=== PATIENT | female | born 1975 | race Caucasian/White ===

== ENCOUNTER 2019-08-03 09:26 | Outpatient (CLI) | payer MEDICARE, MEDICAID ==
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
== END 2019-08-03 09:27 | disposition home or self-care (01) ==
LOC: NM 09:26
PROVIDERS: ATTEND Orthopaedic Surgery
DX: T84.031A Mechanical loosening of internal left hip prosthetic joint, initial encounter (principal); T84.051A Periprosthetic osteolysis of internal prosthetic left hip joint, initial encounter; M70.62 Trochanteric bursitis, left hip
CPT/HCPCS: 78315; A9503

== ENCOUNTER 2019-11-02 16:46 | Inpatient (IN) | payer MEDICARE, OTHER ==
[~2019-11-02 16:46] MED LIST: Iopamidol-370 76% 500 ML 1 ML ONE
[2019-11-02] MEDS ORDERED: Acetaminophen 325 MG TAB PO PRN (20:44)
[2019-11-02] MEDS ORDERED: Ondansetron PF 4 MG/2 ML Vial IVP PRN (20:44)
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
--- NOTE | 2019-11-02 22:16 | CT ---
Exam: CT angiogram of the head INDICATION: Left facial numbness. Slurred speech. COMPARISON: None TECHNIQUE: CT angiogram of the head and neck are performed in the axial plane. Three-dimensional refo rmatted images are submitted for interpretation. FINDINGS: CTA OF THE HEAD WITH AND WITHOUT CONTRAST: NONCONTRAST HEAD CT: No parenchymal hemorrhage No extra-axial hematoma No midline shift Basilar cisterns are patent. White matter hypodensities adjacent to the frontal horn of both lateral ventricles with associated ex vacuo dilatation. There is asymmetric volume loss involving both frontal lobes. Calvarium is intact. Adequate aeration of the sinuses and mastoid air cells. POSTCONTRAST CT OF BRAIN: Pathologic enhancement: No pathologic enhancement the brain. CTA OF THE BRAIN: Intracranial internal carotid arteries:Symmetric enhancement and luminal diameter of the distal cervi rosemary and intracranial internal carotid arteries Anterior circulation: Symmetric enhancement and luminal diameter the A1 and M1 segments. Symmetric en hancement and luminal diameter the proximal A2 segments and proximal MCA branches. Intracranial vertebral arteries: Appropriate enhancement and luminal diameter. Bilateral PICA artery origins are unremarkable. Posterior circulation: Appropriate enhancement and luminal diameter of the basilar artery. Appropriat e enhancement and luminal diameter of the left and right P1 segments. IMPRESSION: 1. No hemodynamically significant stenosis, occlusion or aneurysmal formation. Transcribed Date/Time: 11/02/2019 10:46 PM
[2019-11-03 05:41] LABS: %Eosinophils 1.7 % (0.0-10.0); %Lymphocytes 32.3 % (21.0-51.0); %Monocytes 8.6 % (0.0-10.0); %Neutrophils 56.6 % (42.0-75.0); Hemoglobin 11.7 g/dL (12.0-16.0); Mean Corpuscular HGB CONC 32.4 g/dL (32.0-36.0); Mean Corpuscular Hemoglobin 28.3 pg (27.0-31.0); Mean Corpuscular Volume 87.2 fL (78.0-98.0); Mean Platelet Volume 8.2 fL (7.4-10.4); Platelet Count 247 thou/uL (130-400); RBC Distribution Width 14.8 % (11.5-14.5); Red Blood Cell (RBC) Count 4.13 mill/uL (4.20-5.40); White Blood Cell (WBC) Count 6.2 thou/uL (4.8-10.8)
[2019-11-03 05:42] LABS: #Basophils 0.1 thou/uL (0.0-0.2); #Eosinphils 0.1 thou/uL (0.0-0.7); #Monocytes 0.5 thou/uL (0.11-0.59); #Neutrophils 3.5 thou/uL (1.40-6.50); %Basophils 0.8 % (0.0-1.0)
[2019-11-03 05:57] LABS: Anion Gap 10 mmol/L (10-20); BUN (Urea Nitrogen) 12 mg/dL (7.0-18.7); Calc. Creatinine Clearance 131 mL/min (70-130); Calcium 8.4 mg/dL (7.8-10.44); Carbon Dioxide 25 mmol/L (22-29); Cardiac Risk 3.2 (Less than 4.5); Chloride 107 mmol/L (98-107); Cholesterol 167 mg/dl (< 200 Desired); Estimated GFR-MDRD 80; Glucose 86 mg/dL (70-105); HDL Cholesterol 52 mg/dL (>60 Neg Risk); LDL Cholesterol, Calculated 96 mg/dL; Sodium 138 mmol/L (136-145); Triglycerides 94 mg/dL (Less than 150)
[2019-11-03] MEDS: Enoxaparin Sodium 40 MG/0.4 ML SYRINGE SC SCH (08:35)
[2019-11-03] MEDS: Aspirin 81 mg Enteric Coated Tablet PO SCH (08:36)
[2019-11-03] MEDS ORDERED: FLU VACC QS2019-20(6MOS UP)/PF 60 MCG/0.5 ML SYRINGE IM ONE (09:00)
--- NOTE | 2019-11-03 10:51 | MRI ---
MRI BRAIN WITHOUT CONTRAST: Date: 11/03/2019 HISTORY: Transient ischemic attack. COMPARISON: Brain exam from prior day. FINDINGS: On the diffusion-weighted imaging sequence, there is acute infarction of the posterior right insula, as well as of the right parietal operculum and temporal lobe and posterior right MCA territory. There is moderate atrophy of the frontal lobes. There is evidence of old hemorrhage along the bilater al frontal periventricular white matter. Some gliosis of the bifrontal white matter. Moderate atrophy . Moderate ex vacuo dilatation of the ventricular system and extra-axial CSF spaces. [place] flow-voids appear to be maintained. The dural venous sinus flow-voids are maintained . IMPRESSION: 1. Right posterior mid MCA territory infarction involving the right temporal lobe, as well as the te mporal and frontal operculum and posterior right insula. 2. Evidence of old injury of the bifrontal white matter in the periventricular region with evidence of old hemorrhage and significant gliosis. This may be sequelae of prior trauma. 3. No midline shift. No mass effect. POS: TPC
[2019-11-03] MEDS: traMADol HCl 50 MG TAB PO PRN ×2 (11:35→22:11)
[2019-11-03 17:26] LABS: PTT 34.1 SEC (22.9-36.1); Prothrombin Time 13.5 SEC (12.0-14.7)
[2019-11-03 17:27] LABS: D-Dimer Test 3.36 *mcg/mL (0.27-0.43)
--- NOTE | 2019-11-03 18:02 | PDOC.HOSPP ---
- Subjective Encounter Date: 11/03/19 Encounter Time: 18:00 Subjective: f/u for acute R temporal lobe MCA territorial infarct. Receiving ASA/Lipitor currently. - Objective Vital Signs & Weight: Vital Signs (12 hours) Temp Pulse Pulse Pulse Resp BP BP 11/03/19 16:00 98.1 F 87 14 11/03/19 14:47 90 80 97/72 120/72 11/03/19 11:09 98.0 F 86 12 11/03/19 07:25 98.7 F 79 12 BP Pulse Ox 11/03/19 16:00 121/71 99 11/03/19 14:47 11/03/19 11:09 111/63 96 11/03/19 07:25 103/64 94 L Weight Weight 203 lb I&O: 11/02/19 11/03/19 11/04/19 06:59 06:59 06:59 Intake Total 120 360 Output Total 1 Balance 120 359 Result Diagrams: 11/03/19 04:45 11/03/19 04:45 Radiology Reviewed by me: Yes (MRI brain - R temporal lobe CVA, old infarcts bilat in context of prior TBI) EKG Reviewed by me: Yes (Tele - SR) Hospitalist ROS - Medication Medications: Active Medications Generic Name Dose Route Start Last Admin Trade Name Freq PRN Reason Stop Dose Admin Aspirin 81 mg 11/03/19 09:00 11/03/19 08:36 Ecotrin PO 81 mg DAILY ADITYA Administration Enoxaparin Sodium 40 mg 11/03/19 09:00 11/03/19 08:35 Lovenox SC Not Given 0900 [facility] Tramadol HCl 50 mg 11/02/19 22:41 11/03/19 11:35 Ultram PO 50 mg Q4H PRN Administration Pain - Exam General Appearance: NAD, awake alert Eye: PERRL, anicteric sclera ENT: normocephalic atraumatic, no oropharyngeal lesions Neck: supple, symmetric, no JVD, no thyromegaly, no lymphadenopathy Heart: RRR, no murmur, no gallops, no rubs, normal peripheral pulses Respiratory: CTAB, no wheezes, no rales, no ronchi, normal chest expansion Gastrointestinal: soft, non-tender, non-distended, normal bowel sounds, no palpable masses Extremities: no cyanosis, no clubbing, no edema Skin: normal turgor, no lesions Neurological: cranial nerve grossly intact, no new deficit Musculoskeletal: normal tone, normal strength Psychiatric: normal affect, oriented to person Hosp A/P (1) Acute CVA (cerebrovascular accident) Code(s): I63.9 - CEREBRAL INFARCTION, UNSPECIFIED Status: Acute Plan: R temporal lobe infarct, continue ASA/Lipitor, general stroke protocol, 2D echo pending (2) Seizure Code(s): R56.9 - UNSPECIFIED CONVULSIONS Status: Chronic Plan: Continue Trileptal, outpt Neurology follow up (3) TBI (traumatic brain injury) Code(s): S06.9X9A - UNSP INTRACRANIAL INJURY W LOC OF UNSP DURATION, INIT Status: Chronic Plan: Remote TBI in the early , supportive mgmt - Plan plan discussed w/ family, PT/OT, social work manager, out of bed/ambulate, DVT proph w/SCDs Stable currently Continue ASA/Lipitor 2D echo pending OOB with PT Likely home in 24h
[2019-11-03] MEDS: Atorvastatin Calcium 40 MG TAB PO SCH (22:12)
[2019-11-03] MEDS: OXcarbazepine 300 MG TAB PO SCH (22:12)
[2019-11-04] MEDS: OXcarbazepine 300 MG TAB PO SCH ×2 (08:42→21:30)
[2019-11-04] MEDS: Terbinafine 250 MG TAB PO SCH (08:42)
[2019-11-04] MEDS: Enoxaparin Sodium 40 MG/0.4 ML SYRINGE SC SCH (08:42)
[2019-11-04] MEDS: Aspirin 81 mg Enteric Coated Tablet PO SCH (08:42)
[2019-11-04] MEDS: traMADol HCl 50 MG TAB PO PRN (11:14)
[2019-11-04] MEDS ORDERED: Sodium Chloride 0.9% 1,000 ML IV SCH (11:15)
[2019-11-04 12:58] LABS: HEX PHOS LA Tube 1 60.5 SEC; HEX PHOS LA Tube 2 57.4 SEC; Hexagonal Phospholipid Neut 3.1 SEC (0-8.0); Protein C Activity 85 % (78-152)
[2019-11-04 13:00] LABS: Factor VIII Test 94.8 % ACTIVE (56-157)
--- NOTE | 2019-11-04 18:58 | PDOC.HOSPP ---
- Subjective Encounter Date: 11/04/19 Encounter Time: 10:30 Subjective: Patient seen and examined for acute CVA. No new focal deficits. BP on lower side per RN. No CP/syncope. No new complaints. No overnight events - Objective Vital Signs & Weight: Vital Signs (12 hours) Temp Pulse Resp BP BP BP Pulse Ox 11/04/19 16:00 98.4 F 79 14 117/82 96 11/04/19 11:03 99.5 F 82 14 111/66 99 11/04/19 08:50 109/61 98/65 95/69 11/04/19 07:27 98.1 F 72 20 105/67 98 Weight Weight 203 lb I&O: 11/03/19 11/04/19 11/05/19 06:59 06:59 06:59 Intake Total 120 480 840 Output Total 1 Balance 120 479 840 Result Diagrams: 11/03/19 04:45 11/03/19 04:45 EKG Reviewed by me: Yes (Tele SR) Hospitalist ROS - Review of Systems Respiratory: denies: cough, dry, shortness of breath, hemoptysis, SOB with excertion, pleuritic pain, sputum, wheezing, other Cardiovascular: denies: chest pain, palpitations, orthopnea, paroxysmal noc. dyspnea, edema, light headedness, other - Medication Medications: Active Medications Generic Name Dose Route Start Last Admin Trade Name Freq PRN Reason Stop Dose Admin Aspirin 81 mg 11/03/19 09:00 11/04/19 08:42 Ecotrin PO 81 mg DAILY ADITYA Administration Atorvastatin Calcium 40 mg 11/03/19 21:00 11/03/19 22:12 Lipitor PO 40 mg HS ADITYA Administration Enoxaparin Sodium 40 mg 11/03/19 09:00 11/04/19 08:42 Lovenox SC 40 mg 0900 ADITYA Administration Sodium Chloride 1,000 mls @ 100 mls/hr 11/04/19 11:15 11/04/19 11:24 Normal Saline 0.9% IV 11/04/19 21:14 1,000 mls .Q10H ADITYA Administration Oxcarbazepine 300 mg 11/03/19 21:00 11/04/19 08:42 Trileptal PO 300 mg BID ADITYA Administration Sodium Chloride 10 ml 11/02/19 21:10 11/03/19 22:13 Flush - Normal Saline IVF 10 ml PRN PRN Administration Saline Flush Terbinafine HCl 250 mg 11/04/19 09:00 11/04/19 08:42 Lamisil PO 250 mg DAILY ADITYA Administration Tramadol HCl 50 mg 11/02/19 22:41 11/04/19 11:14 Ultram PO 50 mg Q4H PRN Administration Pain - Exam General Appearance: NAD Heart: RRR, no gallops Respiratory: no wheezes, no rales, no ronchi Gastrointestinal: non-tender, non-distended, normal bowel sounds Extremities: no cyanosis, no clubbing Hosp A/P - Plan DVT proph w/lovenox, DVT proph w/SCDs Acute R MCA CVA Relative orthostatic hypotension Obesity BMI 30 h/o seizure disorder - on AEDs h/o TBI PLAN: Cont ASA Cont Statins Cont PT/OT Resume C IVF due to hypotension Recheck Orthostatic vitals in AM Cont other meds
--- NOTE | 2019-11-04 19:10 | CON ---
DATE OF CONSULTATION: 11/04/2019 CONSULTING PHYSICIAN: Hospitalist Service. IMPRESSION: 1. 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 2. History of bifrontal injury. 3. History of hip fracture. PLAN: 1. Continue aspirin and a statin as you have undertaken. 2. Continue oxcarbazepine for her history of seizures. 3. Referred to Cardiology for event monitor placement. HISTORY OF PRESENT ILLNESS: Ms. Bunch is a 44-year-old white female, came in with complaints of left-sided weakness. Her symptoms improved quite rapidly. Her MRI confirmed a right MCA stroke. She also had some chronic bifrontal areas of injury. Her CT angiogram did not show any evidence of stenosis or aneurysm. Her echocardiogram shows a normal ejection fraction. Her lipid profile had a ratio of 3.2. Hypercoagulation panel was also unremarkable. She is still doing well. She appears stable for discharge. PAST MEDICAL HISTORY: Otherwise as noted. ALLERGIES: TYLENOL. SOCIAL HISTORY: No tobacco or alcohol or drugs. FAMILY HISTORY: Noncontributory. REVIEW OF SYSTEMS: Ten-system review of systems is otherwise negative. PHYSICAL EXAMINATION: GENERAL: She is a healthy-appearing middle-aged woman, in no acute distress. VITAL SIGNS: Stable. She is in a normal sinus rhythm. HEENT: Pupils are equal and reactive. Conjunctivae clear. Oropharynx clear. NECK: Supple. EXTREMITIES: No cyanosis or edema. NEUROLOGIC: She is alert and appropriate. Her speech is fluent and clear. There is no facial asymmetry. She has good rheologist strength bilaterally. There is no difficulty with her gait. She has no tremor or dysmetria. SUMMARY: This is a middle-aged woman with a stroke of uncertain etiology, ruling out intermittent atrial fibrillation would be a reasonable plan for an outpatient. Cardiology can decide if a transesophageal echo is justified as well. Job ID: [id number]
[2019-11-04] MEDS: Atorvastatin Calcium 40 MG TAB PO SCH (21:31)
[2019-11-05] MEDS: Enoxaparin Sodium 40 MG/0.4 ML SYRINGE SC SCH (09:02)
[2019-11-05] MEDS: OXcarbazepine 300 MG TAB PO SCH (09:02)
[2019-11-05] MEDS: Aspirin 81 mg Enteric Coated Tablet PO SCH (09:02)
[2019-11-05] MEDS: Terbinafine 250 MG TAB PO SCH (09:02)
[2019-11-05 12:06] VITALS: BP 114/76; TEMP 98.3
[2019-11-05 17:43] LABS: Cardiolipin IgG Ab 1.2 GPL-U/mL (<10 Negative); Cardiolipin IgM Ab Less than 0.8 MPL-U/mL (<10 Negative); EliA APS New Method **** NEW METHOD ****
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
--- NOTE | 2019-11-05 21:35 | DIS ---
DATE OF ADMISSION: 11/03/2019 DATE OF DISCHARGE: 11/05/2019 DISCHARGE DISPOSITION: Home. FOLLOWUP: 1. Follow up with [facility] in 1 week. 2. Follow up with Neurology, Dr. Guzman in 1 to 2 weeks. 3. Follow up with Cardiology, Dr. Luna. 4. Event monitor will be arranged by Dr. Luna. Test pending at discharge, thrombosis panel. The patient was seen and examined on the day of discharge. No new focal findings. BRIEF HOSPITAL COURSE: The patient is a 44-year-old female, who presented to the emergency room on 02 November 2019 with stroke-like symptoms. She initially presented to [facility] and was transferred to this facility. A CT angiogram of the brain was negative for hemodynamically significant stenosis. An MRI of the brain, however, was positive for right MCA territory CVA. An echocardiogram showed ejection fraction of 55% to 60% with trace mitral regurgitation, trace tricuspid regurgitation. The patient was evaluated by Neurology and Cardiology. Event monitor will be arranged. The patient has been cleared by consultants for discharge. FINAL DIAGNOSES: 1. Acute right middle cerebral artery territory cerebrovascular accident. 2. Obesity with a BMI of 30. 3. Relative orthostatic hypotension, resolved. 4. History of seizure disorder. 5. History of traumatic brain injury. 6. The patient understands the above plan of care. Job ID: [id number]
== END 2019-11-05 15:50 | disposition home health service (06) | DRG 65 ==
LOC: ERS 16:46 → 2SE 20:35 → OBSVTOIN 11-03 11:33
PROVIDERS: ADMIT Hospitalist; ATTEND Hospitalist
PROC: B030ZZZ Magnetic Resonance Imaging (MRI) of Brain (ICD-10-PCS; principal; 2019-11-03)
DX: I63.511 Cerebral infarction due to unspecified occlusion or stenosis of right middle cerebral artery (principal); G81.94 Hemiplegia, unspecified affecting left nondominant side; E66.9 Obesity, unspecified; G40.909 Epilepsy, unspecified, not intractable, without status epilepticus; I08.1 Rheumatic disorders of both mitral and tricuspid valves; R29.810 Facial weakness; R47.81 Slurred speech; R40.2412 Glasgow coma scale score 13-15, at arrival to emergency department; R29.700 NIHSS score 0; I95.1 Orthostatic hypotension; Z88.8 Allergy status to other drugs, medicaments and biological substances; Z68.30 Body mass index [BMI] 30.0-30.9, adult; Z87.820 Personal history of traumatic brain injury
CPT/HCPCS: 36415; 70496; 70551; 80048; 80061; 81240; 81241; 83090; 85025; 85240; 85300; 85303; 85305; 85307; 85379; 85598; 85610; 85730; 86147; 93306; 99284; J1650; Q9967